=== PATIENT | female | born 1985 | race Two or more races ===

== ENCOUNTER 2017-01-03 20:14 | Emergency (ER) | payer BC, MEDICAID ==
[2017-01-03 21:06] VITALS: BP 116/75
--- NOTE | 2017-01-03 21:22 | UC ---
Ear Complaint HPI - HPI Summary HPI Summary: Significant L ear pain after swimming today. Had similar pain after swimming 1 week ago. Feels like an obstruction. - History of Current Complaint Chief Complaint: UCEar Stated Complaint: JAW PAIN, AND EAR ACHE Time Seen by Provider: 01/03/17 21:07 Hx Obtained From: Patient Hx Last Menstrual Period: [id number] ?: No Onset/Duration: Gradual Onset, Lasting Hours Severity Initially: Moderate Severity Currently: Moderate Aggravating Factors: Nothing Alleviating Factors: Nothing Associated Signs/Symptoms: Positive: Hearing Loss, Foreign Body Sensation - Allergies/Home Medications Allergies/Adverse Reactions: Allergies Allergy/AdvReac Type Severity Reaction Status Date / Time No Known Allergies Allergy Verified 01/03/17 20:58 PMH/Surg Hx/FS Hx/Imm Hx Endocrine History Of: Denies: Diabetes, Thyroid Disease Cardiovascular History Of: Denies: Cardiac Disorders, Hypertension, Pacemaker/ICD Respiratory History Of: Denies: COPD, Asthma GI/ History Of: Denies: Ulcer Psychological History Of: Reports: Depression - Surgical History Surgical History: Yes Surgery Procedure, Year, and Place: C SECTION X1 - Family History Known Family History: Negative: Blood Disorder - Social History Lives: With Family Alcohol Use: None Substance Use Type: None Smoking Status (MU): Never Smoked Tobacco Have You Smoked in the Last Year: No - Immunization History Most Recent Influenza Vaccination: Fall 2013 Most Recent Tetanus Shot: 02/14/15 Most Recent Pneumonia Vaccination: none Review of Systems Constitutional: Negative Skin: Negative Eyes: Negative ENT: Ear Ache Respiratory: Negative Cardiovascular: Negative Gastrointestinal: Negative Genitourinary: Negative Motor: Negative Neurovascular: Negative Musculoskeletal: Negative Neurological: Negative Psychological: Negative All Other Systems Reviewed And Are Negative: Yes Physical Exam Triage Information Reviewed: Yes Appearance: Well-Appearing, No Pain Distress, Well-Nourished Vital Signs: Initial Vital Signs Temp 98.0 F 01/03/17 21:00 Pulse 69 01/03/17 21:00 Resp 17 01/03/17 21:00 BP 116/75 01/03/17 21:00 Pulse Ox 100 01/03/17 21:00 Vital Signs Reviewed: Yes Eye Exam: Normal Eyes: Positive: Conjunctiva Clear ENT: Positive: Hearing grossly normal, Pharynx normal, Other: - bilat cerumen impaction. After flush and curettage by [employer] TMs still obstructed by cerumen.. Negative: Nasal congestion, Nasal drainage Dental Exam: Normal Neck exam: Normal Neck: Positive: Supple, Nontender Respiratory Exam: Normal Respiratory: Positive: Chest non-tender, Lungs clear, Normal breath sounds, No respiratory distress, No accessory muscle use Cardiovascular Exam: Normal Cardiovascular: Positive: RRR, No Murmur Musculoskeletal Exam: Normal Neurological Exam: Normal Neurological: Positive: Alert Psychological Exam: Normal Skin Exam: Normal Ear Complaint Course/Dx - Differential Dx/Diagnosis Provider Diagnoses: bilat cerumen impaction Discharge - Discharge Plan Condition: Stable Disposition: HOME Patient Education Materials: Cerumen Impaction (ED) Referrals: Miladys Adams [employer] [Nurse Practitioner] - If Needed
== END 2017-01-03 22:03 | disposition home or self-care (01) ==
LOC: UCEAST 20:14
DX: H61.23 Impacted cerumen, bilateral (principal); F32.9 Major depressive disorder, single episode, unspecified
CPT/HCPCS: 99213; G0463